=== PATIENT | female | born 1995 | race Caucasian/White ===

== ENCOUNTER → 2017-06-07 | Outpatient (REF) | payer BC ==
[~2017-06-07] MED LIST: CIPR-344 PO; DIPH-1 PO; LOR5/325 PO; METR-1 PO; ONDA4TAB PO
[2017-06-07 19:57] LABS: PLATELET COUNT, AUTOMATED 270 K/uL (150-450)
== END ==
PROVIDERS: ATTEND Nurse Practitioner Family
DX: R19.7 Diarrhea, unspecified (principal)
CPT/HCPCS: 82040; 82247; 82310; 82374; 82435; 82565; 82947; 84075; 84132; 84155; 84295; 84450; 84460; 84520; 85025

== ENCOUNTER 2017-06-08 06:05 | Emergency (ER) | payer BC ==
[~2017-06-08] VITALS: Ht 165.1 cm; Wt 113.4 kg
--- NOTE | 2017-06-08 06:22 | ER Report ---
History and Physical Time Seen By MD: 06:20 Hx. of Stated Complaint: patient states that she is having flu like symptoms (WESTON ALLEN MD) HPI/ROS CHIEF COMPLAINT: abdominal pain, blood in stool HISTORY OF PRESENT ILLNESS: This is a 21 year old female. She has been having abdominal pain for the last few days. Feels the pain lower in the abdomen. Does seem to worsen and then let up some. Nothing really makes it worse or better. Having diarrhea, estimates about [id number]. Did not notice red in the stool, but having some red blood on the tissue when wiping. Nausea, but no vomiting. Has been trying to drink liquids, but feels dehydrated and gets dizzy upon standing. She has a headache that worsens with cough. Cough is mild, nonproductive, occasional mucous. Mild stuffy nose. No sore throat, but throat feels dry. Went to urgent care, negative for influenza. Because she was feeling worse, she came to the ER for further evaluation. Has been having some fevers. No known sick contacts. No bad food or water exposures. No chest pain. No dysuria or blood in the urine. REVIEW OF SYSTEMS: As above. (WESTON ALLEN MD) Allergies: Coded Allergies: No Known Drug Allergies (Unverified , 06/08/17) Home Meds Active Scripts Diphenoxylate Hcl/Atropine (LOMOTIL TABLET) 1 Each Tablet, 1 EACH PO Q4H for diarrhea, #10 TAB 0 Refills Prov:DANILO ELLIOTT MD 06/08/17 Ondansetron (ZOFRAN ODT) 4 Mg Tab.rapdis, 4 MG PO Q6H Y for NAUSEA, #20 TAB.BRIGITTE 0 Refills Prov:DANILO ELLIOTT MD 06/08/17 Hydrocodone Bit/Acetaminophen (HYDROCODON-ACETAMINOPHEN 5-325) 1 Each Tablet, 1 EACH PO Q4-6H for PAIN, #10 TAB 0 Refills Prov:DANILO ELLIOTT MD 06/08/17 Ciprofloxacin Hcl (CIPRO) 500 Mg Tablet, 500 MG PO BID, #14 TAB 0 Refills Prov:DANILO ELLIOTT MD 06/08/17 Metronidazole (FLAGYL) 500 Mg Tablet, 500 MG PO BID, #14 TAB 0 Refills Prov:DANILO ELLIOTT MD 06/08/17 Reviewed Nurses Notes: Yes (WESTON ALLEN MD) Hx Substance Use Disorder: No Hx Alcohol Use: Yes (OCC.) (WESTON ALLEN MD) Constitutional Vital Sign - Last 24 Hours 06/08/17 06/08/17 06/08/17 06/08/17 06:09 06:12 06:30 06:35 Temp 100.3 Pulse 123 120 Resp 20 B/P (MAP) 139/88 (105) 139/88 144/78 (100) Pulse Ox 91 92 O2 Delivery Room Air 06/08/17 06/08/17 06/08/17 06/08/17 07:08 07:30 07:35 07:40 Pulse 105 104 B/P (MAP) 130/73 (92) 120/66 (84) Pulse Ox 90 91 06/08/17 06/08/17 06/08/17 06/08/17 07:45 08:00 08:05 08:10 Pulse 106 108 106 106 B/P (MAP) 139/73 (95) Pulse Ox 92 89 91 90 06/08/17 06/08/17 06/08/17 06/08/17 08:25 08:40 08:45 08:50 Pulse 105 111 109 107 Pulse Ox 95 95 95 06/08/17 06/08/17 06/08/17 06/08/17 08:55 09:00 09:05 09:10 Pulse 106 109 109 B/P (MAP) 128/56 (80) Pulse Ox 95 95 94 94 06/08/17 06/08/17 06/08/17 06/08/17 09:15 09:25 09:30 09:35 Pulse 114 115 117 B/P (MAP) 121/69 (86) Pulse Ox 95 95 95 97 Intake and Output 06/08/17 06/08/17 06/09/17 15:00 23:00 07:00 Intake Total 2000 ml Balance 2000 ml (DANILO ELLIOTT MD) Physical Exam General Appearance: The patient is alert. No acute distress. Non-toxic in appearance. Eyes: Pupils are equal, round. No pallor, injection or icterus. ENT: Mucous membranes are moist. Normal oral mucosa. Posterior oropharynx has some erythema with some post-nasal drainage. Normal tympanic membranes and canals. Neck: Supple and non tender. No lymphadenopathy. Respiratory: Breathing easily and unlabored. Lungs are clear to auscultation. Cardiovascular: Regular rate and rhythm. No murmurs, gallops or rubs. Normal capillary refill. Gastrointestinal: Abdomen is soft, tender through the lower abdomen. Some lower back pain associated. Nondistended. No rebound or guarding. No masses or organomegaly. Normal active bowel sounds. No costovertebral angle tenderness with percussion. Neurological: Alert and oriented x3. No focal neurologic deficits Skin: Warm and dry. No rashes. Musculoskeletal: Extremities are nontender. Full range of motion. No tenderness in palpation of the cervical, thoracic and lumbar spine. DIFFERENTIAL DIAGNOSIS: After history and physical exam, differential diagnosis was considered for abdominal pain including but not limited to gastroenteritis, colitis, viral syndrome and urinary tract infection. ([facility]) Medical Decision Making Data Points Result Diagram: 06/08/17 0617 06/08/17 0617 Laboratory Hematology Test 06/08/17 06:17 06/08/17 06:22 06/08/17 07:14 Red Blood Count 5.83 M/uL (4.17-5.56) Mean Corpuscular Volume 81.7 fL (80.0-96.0) Mean Corpuscular Hemoglobin 27.8 pg (26.0-33.0) Mean Corpuscular Hemoglobin Concent 34.1 g/dL (32.0-36.0) Red Cell Distribution Width 13.5 % (11.5-14.5) Mean Platelet Volume 9.2 fL (7.2-11.1) Neutrophils (%) (Auto) 88.6 % (39.4-72.5) Lymphocytes (%) (Auto) 5.3 % (17.6-49.6) Monocytes (%) (Auto) 5.6 % (4.1-12.4) Eosinophils (%) (Auto) 0.0 % (0.4-6.7) Basophils (%) (Auto) 0.5 % (0.3-1.4) Nucleated RBC Relative Count (auto) 0.0 /100WBC Neutrophils # (Auto) 12.4 K/uL (2.0-7.4) Lymphocytes # (Auto) 0.7 K/uL (1.3-3.6) Monocytes # (Auto) 0.8 K/uL (0.3-1.0) Eosinophils # (Auto) 0.0 K/uL (0.0-0.5) Basophils # (Auto) 0.1 K/uL (0.0-0.1) Nucleated RBC Absolute Count (auto) 0.00 K/uL Prothrombin Time 15.5 seconds (12.0-14.4) Prothromb Time International Ratio 1.21 Activated Partial Thromboplast Time 37 seconds (23-35) Sodium Level 136 mmol/L (137-145) Potassium Level 3.2 mmol/L (3.5-5.0) Chloride Level 103 mmol/L (98-107) Carbon Dioxide Level 20 mmol/L (22-31) Blood Urea Nitrogen 7 mg/dl (7-18) Creatinine 0.80 mg/dl (0.52-1.04) Glomerular Filtration Rate Calc > 60.0 Random Glucose 166 mg/dl (75-110) Calcium Level 8.4 mg/dl (8.4-10.2) Total Bilirubin 0.8 mg/dl (0.2-1.3) Aspartate Amino Transf (AST/SGOT) 24 U/L (0-35) Alanine Aminotransferase (ALT/SGPT) 43 U/L (0-56) Alkaline Phosphatase 71 U/L (0-126) C-Reactive Protein 6.8 mg/dl (<1.0) Total Protein 6.8 gm/dl (6.3-8.2) Albumin 3.6 g/dl (3.5-5.0) Amylase Level 49 U/L (0-110) Lipase 25 U/L (23-300) Human Chorionic Gonadotropin, Qual Negative (NEGATIVE) Influenza Virus Type A (PCR) Negative (NEGATIVE) Influenza Virus Type B (PCR) Negative (NEGATIVE) Stool Occult Blood (IFOB) Negative (NEGATIVE) Chemistry Test 06/08/17 06:17 06/08/17 06:22 06/08/17 07:14 White Blood Count 14.0 k/uL (4.5-11.0) Red Blood Count 5.83 M/uL (4.17-5.56) Hemoglobin 16.2 g/dL (12.0-16.0) Hematocrit 47.6 % (34.0-47.0) Mean Corpuscular Volume 81.7 fL (80.0-96.0) Mean Corpuscular Hemoglobin 27.8 pg (26.0-33.0) Mean Corpuscular Hemoglobin Concent 34.1 g/dL (32.0-36.0) Red Cell Distribution Width 13.5 % (11.5-14.5) Platelet Count 149 K/uL (150-450) Mean Platelet Volume 9.2 fL (7.2-11.1) Neutrophils (%) (Auto) 88.6 % (39.4-72.5) Lymphocytes (%) (Auto) 5.3 % (17.6-49.6) Monocytes (%) (Auto) 5.6 % (4.1-12.4) Eosinophils (%) (Auto) 0.0 % (0.4-6.7) Basophils (%) (Auto) 0.5 % (0.3-1.4) Nucleated RBC Relative Count (auto) 0.0 /100WBC Neutrophils # (Auto) 12.4 K/uL (2.0-7.4) Lymphocytes # (Auto) 0.7 K/uL (1.3-3.6) Monocytes # (Auto) 0.8 K/uL (0.3-1.0) Eosinophils # (Auto) 0.0 K/uL (0.0-0.5) Basophils # (Auto) 0.1 K/uL (0.0-0.1) Nucleated RBC Absolute Count (auto) 0.00 K/uL Prothrombin Time 15.5 seconds (12.0-14.4) Prothromb Time International Ratio 1.21 Activated Partial Thromboplast Time 37 seconds (23-35) Glomerular Filtration Rate Calc > 60.0 Calcium Level 8.4 mg/dl (8.4-10.2) Total Bilirubin 0.8 mg/dl (0.2-1.3) Aspartate Amino Transf (AST/SGOT) 24 U/L (0-35) Alanine Aminotransferase (ALT/SGPT) 43 U/L (0-56) Alkaline Phosphatase 71 U/L (0-126) C-Reactive Protein 6.8 mg/dl (<1.0) Total Protein 6.8 gm/dl (6.3-8.2) Albumin 3.6 g/dl (3.5-5.0) Amylase Level 49 U/L (0-110) Lipase 25 U/L (23-300) Human Chorionic Gonadotropin, Qual Negative (NEGATIVE) Influenza Virus Type A (PCR) Negative (NEGATIVE) Influenza Virus Type B (PCR) Negative (NEGATIVE) Stool Occult Blood (IFOB) Negative (NEGATIVE) Coagulation Test 06/08/17 06:17 Prothrombin Time 15.5 seconds Prothromb Time International Ratio 1.21 Activated Partial Thromboplast Time 37 seconds (DANILO ELLIOTT MD) EKG/Imaging Imaging FACILITY: [facility] - [place] PATIENT NAME: Max Hassan : 1995 MR: [id number] V: [id number] EXAM DATE: ORDERING PHYSICIAN: WESTON ALLEN TECHNOLOGIST: Location: [facility] - [place] Patient: Max Hassan : 1995 Visit/Account:[id number] Date of Sevice: 06/08/2017 EXAMINATION: CT Abdomen and Pelvis With Contrast 06/08/2017 6:33 AM HISTORY: Abdominal pain. Diarrhea. Blood with bowel movements. TECHNIQUE: Spiral scan was through the abdomen and pelvis during injection of nonionic iodinated intravenous contrast. Contrast: 75 mL of IV Isovue 370. One of the following dose optimization techniques was utilized in the performance of this exam: Automated exposure control; adjustment of the mA and/ or kV according to the patient's size; or use of an iterative reconstruction technique. Specific details can be referenced in the facility's radiology CT exam operational policy. COMPARISON STUDIES: none. FINDINGS: Liver / biliary: Prior cholecystectomy. Pancreas: Liver is prominent with a craniocaudal dimension of 20 cm. Spleen: 15.0 x 9.2 x 13.0 cm. Incidental tiny anterior accessory splenule. Adrenal glands: negative Kidneys / retroperitoneum: negative Pelvic structures: Right ovarian cyst measures 9.5 x 6.2 [address] this appears to be unilocular without a substantial solid component. Unremarkable left ovary. Uterus is pushed towards the left due to the right ovarian cyst but otherwise unremarkable. Bowel / peritoneum / mesenteries: Diffuse thickening of the colon. Mild diverticulosis of the distal colon. Normal appendix. Small bowel is unremarkable. Vessels: negative Musculoskeletal / Body wall: negative Lymph node assessment: negative Lower chest: negative IMPRESSION: 1. Extensive mural thickening of the colon consistent with colitis which is nonspecific but presumably either infectious or inflammatory rather than ischemic. 2. Mild diverticulosis of the colon. No focal diverticulitis. 3. 9.5 cm dominant right ovarian cyst. In a patient of this age this may be a large functional cyst but cystic neoplasm cannot be excluded. Short-term follow- up ultrasound in 2-3 cycles would be reasonable. 4. Mild nonspecific hepatosplenomegaly. Report Dictated By: Richardson Najera MD at 06/08/2017 8:50 AM Report E-Signed By: Richardson Najera MD at 06/08/2017 8:58 AM WSN:[id number] (DANILO ELLIOTT MD) ED Course/Re-evaluation Clinical Indication for ER IV: Hydration, IV Access (WESTON ALLEN MD) ED Course 06/08/2017 8:06:50 am patient still having difficulty with giving a urine sample has completed 1 L normal saline. Plan at this time will be to add on a serum brings the test and we'll give a 2nd liter bolus of normal saline. Re-evaluation 06/08/2017 9:33:[address] scan shows evidence for colitis. Plan will be oral antibiotics with Flagyl and Cipro. We'll also prescribe Lomotil, short course of hydrocodone for abdominal pain as well as Zofran for nausea. Patient made aware of CT findings will discharge home at this time. I did discuss with patient incidental finding of a right sided 9 cm ovarian cyst. It was recommended by radiology that the patient follow-up in 2-3 months for an ultrasound to better evaluate that ovarian finding. Patient states she does not have an RAG PRODUCTION WORKER. I will provide her with contact information for one of our OB/ [employer]'s and instructed her that she will require follow-up and ultrasound to reevaluate the right ovary. Patient had no questions or concerns at this time Decision to Disposition Date: Jun 08, 2017 Decision to Disposition Time: 09:30 (DANILO ELLIOTT MD) Depart Departure Latest Vital Signs Vital Signs Date Time Temp Pulse Resp B/P (MAP) Pulse Ox O2 Delivery O2 Flow Rate FiO2 06/08/17 09:35 97 06/08/17 09:30 117 121/69 (86) 06/08/17 06:12 100.3 20 Room Air (DANILO ELLIOTT MD) Impression: Primary Impression: Colitis Condition: Improved Disposition: HOME OR SELF-CARE Referrals: ALDO CROUCH MD Schedule follow-up appointment in 2-3 months for rate of a pelvic ultrasound to better evaluate your right ovary New Scripts Diphenoxylate Hcl/Atropine (LOMOTIL TABLET) 1 Each Tablet 1 EACH PO Q4H for diarrhea, #10 TAB 0 Refills Prov: DANILO ELLIOTT MD 06/08/17 Ondansetron (ZOFRAN ODT) 4 Mg Tab.rapdis 4 MG PO Q6H Y for NAUSEA, #20 TAB.BRIGITTE 0 Refills Prov: DANILO ELLIOTT MD 06/08/17 Hydrocodone Bit/Acetaminophen (HYDROCODON-ACETAMINOPHEN 5-325) 1 Each Tablet 1 EACH PO Q4-6H for PAIN, #10 TAB 0 Refills Prov: DANILO ELLIOTT MD 06/08/17 Ciprofloxacin Hcl (CIPRO) 500 Mg Tablet 500 MG PO BID, #14 TAB 0 Refills Prov: DANILO ELLIOTT MD 06/08/17 Metronidazole (FLAGYL) 500 Mg Tablet 500 MG PO BID, #14 TAB 0 Refills Prov: DANILO ELLIOTT MD 06/08/17 Departure Forms: ER Transition Record, Medications Reconciliation, Off Work/ School Form, School or Work Release?: Work Number of days to be released: 3 Patient Portal Information Patient Instructions: Colitis (ED) Additional Instructions: Your CT scan today showed an incidental finding of a 9 cm right ovarian cyst which is likely what they call a dominant follicular cyst. However it is recommended that you schedule a follow-up appointment with an RAG PRODUCTION WORKER in the next 2-3 months to have a formal pelvic ultrasound to evaluate that ovary better. WESTON ALLEN MD Jun 08, 2017 06:22 DANILO ELLIOTT MD Jun 08, 2017 08:07
[2017-06-08] MEDS ORDERED: NS(*) 0.9% 1000 ML BAG 1,000 ML IV ONE ×2 (06:33→08:00)
[2017-06-08] MEDS ORDERED: PANTOPRAZOLE SOD 40 MG IV VIAL IVP ONE (06:35)
[2017-06-08] MEDS ORDERED: ONDANSETRON 4 MG/2 ML VIAL IVP ONE (06:35)
[2017-06-08] MEDS ORDERED: NS 0.9% 20 ML SDV 60 ML ONE (06:43)
[2017-06-08] MEDS ORDERED: IOPAMIDOL 76% 75 ML INFUS BTL 75 ML ONE (06:43)
[2017-06-08 06:45] LABS: PLATELET COUNT, AUTOMATED 149 K/uL (150-450)
[2017-06-08 06:56] LABS: INR 1.21
--- NOTE | 2017-06-08 09:03 | RADIOLOGY IMAGING REPORT ---
FACILITY: [facility] PATIENT NAME: Max Hassan : 1995 MR: [id number] V: [id number] EXAM DATE: ORDERING PHYSICIAN: WESTON ALLEN TECHNOLOGIST[place] [facility] [place] : 1995 Visit/Account:[id number] Date of Sevice: 06/08/2017 EXAMINATION: CT Abdomen and Pelvis With Contrast 06/08/2017 6:33 AM HISTORY: Abdominal pain. Diarrhea. Blood with bowel movements. TECHNIQUE: Spiral scan was through the abdomen and pelvis during injection of nonionic iodinated in travenous contrast. Contrast: 75 mL of IV Isovue 370. One of the following dose optimization techniques was utilized in the performance of this exam: Autom ated exposure control; adjustment of the mA and/or kV according to the patient's size; or use of an i terative reconstruction technique. Specific details can be referenced in the facility's radiology C T exam operational policy. COMPARISON STUDIES: none. FINDINGS: Liver / biliary: Prior cholecystectomy. Pancreas: Liver is prominent with a craniocaudal dimension of 20 cm. Spleen: 15.0 x 9.2 x 13.0 cm. Incidental tiny anterior accessory splenule. Adrenal glands: negative Kidneys / retroperitoneum: negative Pelvic structures: Right ovarian cyst measures 9.5 x 6.2 x [address] this appears to be uniloc ular without a substantial solid component. Unremarkable left ovary. Uterus is pushed towards the lef t due to the right ovarian cyst but otherwise unremarkable. Bowel / peritoneum / mesenteries: Diffuse thickening of the colon. Mild diverticulosis of the distal colon. Normal appendix. Small bowel is unremarkable. Vessels: negative Musculoskeletal / Body wall: negative Lymph node assessment: negative Lower chest: negative IMPRESSION: 1. Extensive mural thickening of the colon consistent with colitis which is nonspecific but presumabl y either infectious or inflammatory rather than ischemic. 2. Mild diverticulosis of the colon. No focal diverticulitis. 3. 9.5 cm dominant right ovarian cyst. In a patient of this age this may be a large functional cyst b ut cystic neoplasm cannot be excluded. Short-term follow-up ultrasound in 2-3 cycles would be reasona ble. 4. Mild nonspecific hepatosplenomegaly. Report Dictated By: Richardson Najera MD at 06/08/2017 8:50 AM Report E-Signed By: Richardson Najera MD at 06/08/2017 8:58 AM WSN:[id number]
[2017-06-08 09:30] VITALS: BP 121/69
[2017-06-08] MEDS ORDERED: ONDA4TAB PO (09:33)
[2017-06-08] MEDS ORDERED: DIPH-1 PO (09:33)
[2017-06-08] MEDS ORDERED: METR-1 PO (09:33)
[2017-06-08] MEDS ORDERED: LOR5/325 PO (09:33)
[2017-06-08] MEDS ORDERED: CIPR-344 PO (09:33)
== END 2017-06-08 09:51 | disposition home or self-care (01) ==
LOC: ER 06:13
DX: K52.9 Noninfective gastroenteritis and colitis, unspecified (principal)
CPT/HCPCS: 74177; 82150; 82274; 83690; 84703; 85025; 85610; 85730; 86140; 87502; 96361; 96374; 96375; 99284; C9113; J2405; J7030; J7050; Q9967; 82040; 82247; 82310; 82374; 82435; 82565; 82947; 84075; 84132; 84155; 84295; 84450; 84460; 84520